=== PATIENT | male | born 1970 | race Caucasian/White ===

== ENCOUNTER → 2020-01-17 | Outpatient (CLI) | payer OTHER | END | disposition home or self-care (01) | LOC: LAB SHORT 11:27 → PLD 11:27 | DX: U07.1 COVID-19 (principal) | CPT/HCPCS: U0003 ==

== ENCOUNTER → 2021-03-03 | Outpatient (CLI) | payer OTHER | LOC: LAB SHORT 07:50 | DX: L82.1 Other seborrheic keratosis (principal) | CPT/HCPCS: 88305 ==

== ENCOUNTER 2022-03-11 16:11 | Emergency (ER) | payer OTHER ==
[~2022-03-11] VITALS: Ht 193 cm; Wt 192.8 kg
== END 2022-03-11 17:36 | disposition home or self-care (01) ==
LOC: ER 16:11
DX: S61.412A Laceration without foreign body of left hand, initial encounter (principal); W27.0XXA Contact with workbench tool, initial encounter; Z23 Encounter for immunization
CPT/HCPCS: 90714